=== PATIENT | female | born 1980 | race Two or more races ===

== ENCOUNTER 2024-02-07 13:17 | Inpatient (IN) | payer MEDICAID ==
[~2024-02-07] VITALS: Ht 162.6 cm; Wt 75.0 kg
[2024-02-07] VITALS (11 sets, daily range): BP systolic 117–170; BP diastolic 62–97; PULSE 70–84; RESP 13–20; TEMP 97.5–98.3; O2SAT 97–100
[2024-02-07] MEDS: ASPirin 325 MG TAB PO ONE (13:44)
[2024-02-07] MEDS: SODIUM CHLORIDE 0.9% 1,000 ML IV ONE (13:44)
[2024-02-07] MEDS: NITROGLYCERIN 0.4 MG SL TAB SL ONE (13:45)
[2024-02-07 13:57] LABS: Basophils # (auto) 0 10 ^3/uL (0-0.2); Basophils % (auto) 0.1 % (0.0-2.0); Eosinophils # (auto) 0 10 ^3/uL (0-0.8); Eosinophils % (auto) 0.2 % (0.0-7.0); Hematocrit 31.7 % (36.0-46.0); Hemoglobin 9.4 g/dL (12.2-16.2); Lymphocytes # (auto) 1.6 10 ^3/uL (0.4-5.4); Lymphocytes % (auto) 9.9 % (10.0-50.0); Mean Corpuscular Hgb Conc. 29.6 g/dL (32.0-36.0); Mean Corpuscular Volume 67.4 fL (80.0-100.0); Monocytes # (auto) 1.1 10 ^3/uL (0-1.3); Monocytes % (auto) 7.1 % (0.0-12.0); Neutrophils % (auto) 82.7 % (37.0-80.0); Red Blood Cells 4.71 10^6/uL (4.0-5.20); Red Cell Distribution Width 18.6 % (11.8-14.3); White Blood Cell 15.7 10^3/uL (4.4-10.8)
[2024-02-07 14:17] LABS: Hypochromia Marked; Platelet Estimate Increased
[2024-02-07 14:20] LABS: Blood Alcohol < 3.0 mg/dL (<10); Magnesium 1.7 mg/dL (1.6-2.6)
[2024-02-07 14:22] LABS: Alanine Aminotransferase 21 U/L (7-40); Albumin 4.7 g/dL (3.2-4.8); Alkaline Phosphatase 106 U/L (46-116); Anion Gap 8 (5-15); Aspartate Aminotransferase 35 U/L (13-40); BUN/Creatinine Ratio 18.2 (10.0-20.0); Bilirubin, Total 0.5 mg/dL (0.2-1.0); Blood Urea Nitrogen 10 mg/dL (9-23); Calcium 9.6 mg/dL (8.5-10.1); Carbon Dioxide 25 mmol/L (20-30); Chloride 105 mmol/L (98-107); Glucose 89 mg/dL (74-106); Magnesium 1.7 mg/dL (1.6-2.6); Potassium 3.7 mmol/L (3.5-5.1); Sodium 138 mmol/L (136-145); Total Protein 7.8 g/dL (5.7-8.2)
[2024-02-07] MEDS ORDERED: HEPARIN DRIP/D5W 100UNITS/ML 250 ML IV SCH (14:30)
[2024-02-07] MEDS ORDERED: HEPARIN SODIUM (PORCINE) 5000 UNITS/ML 1ML VIAL IV ONE (14:30)
[2024-02-07] MEDS ORDERED: NITROGLYCERIN 0.4 MG SL TAB SL PRN (14:45)
[2024-02-07] MEDS ORDERED: DOCUSATE SOD 100 MG CAP PO PRN (14:45)
[2024-02-07] MEDS ORDERED: MORPHINE SULFATE INJ 2 MG/ml SYRG IV PRN (14:45)
[2024-02-07] MEDS ORDERED: ALBUTEROL SULF 2.5 MG/0.5ML(0.5%) NEB SOLN NEB PRN (15:15)
[2024-02-07] MEDS ORDERED: IPRATROPIUM BROM 0.5 MG/2.5ML INH SOL NEB PRN (15:15)
[2024-02-07 15:29] LABS: Amphetamine Screen, Urine Neg (NEGATIVE)
[2024-02-07 15:30] LABS: Barbiturate Scree,Urine Neg (NEGATIVE); Benzodiazephine Screen, Urine Neg (NEGATIVE); Cannabinoid Screen, Urine Pos (NEGATIVE); Cocaine Screen, Urine Pos (NEGATIVE); Opiate Scree,Urine Neg (NEGATIVE); Phencyclidine Screen, Urine Neg (NEGATIVE); Urine Bacteria FEW /hpf (None Seen); Urine Blood Negative /uL (Negative); Urine Clarity Turbid (Clear); Urine Color Light-Yellow (Yellow); Urine Mucus FEW (None Seen); Urine Protein, UAD TRACE (Negative); Urine Specific Gravity 1.022 (1.001-1.035); Urine Urobilinogen Normal (Negative); Urine WBC 5 /hpf (0 - 5)
[2024-02-07] MEDS: IODIXANOL 320MG/ML 100ML BTL IV ONE (15:43)
[2024-02-07] MEDS: LIDOCAINE 2%HCL (LOCAL ANESTH.) INJ 20ML MDV ONE (15:58)
[2024-02-07 16:02] LABS: INR 1.04 (0.9-1.15); Partial Thromboplastin Time 25.6 SEC (24.5-34.5)
[2024-02-07] MEDS: cefTRIAXone 1GM/50ML D5W 50 ML IV ONE (16:04)
[2024-02-07] MEDS: PANTOPRAZOLE 40 MG/10 ML VIAL INJ IV ONE (16:04)
[2024-02-07 16:06] LABS: Triglycerides 130 mg/dL (< 150)
[2024-02-07 16:07] LABS: % Iron Saturation 4.2 % (15-50); LDL Cholesterol 114 mg/dL (< 100)
[2024-02-07 16:08] LABS: Cholesterol 169 mg/dL (< 200); HDL Cholesterol 44 mg/dL (40-59)
[2024-02-07] MEDS: ANGIOMAX 250 MG VIAL IV ONE (16:56)
[2024-02-07] MEDS: VERAPAMIL 2.5MG/ML INJ 2ML VIAL IV ONE (16:56)
[2024-02-07] MEDS: fentaNYL CITRATE 100 MCG/2 ML VL ONE (16:56)
[2024-02-07] MEDS: MIDAZOLAM HCL 2MG/2ML 2ml VIAL (1mg/ml) ONE (16:56)
[2024-02-07] MEDS: HEPARIN SODIUM (PORCINE) 5000 UNITS/ML 1ML VIAL ONE (16:56)
[2024-02-07] MEDS: SODIUM CHL 0.9% 0 ML ONE (16:57)
[2024-02-07] MEDS: HEPARIN SODIUM (PORCINE) 5000 UNITS/ML 1ML VIAL IV ONE (18:12)
[2024-02-07] MEDS: hydrALAZINE HCL 20 MG/ML VL IV PRN (18:12)
[2024-02-07] MEDS: SODIUM CHLORIDE 0.9% 1,000 ML IV SCH (18:13)
[2024-02-07] MEDS: MORPHINE SULFATE INJ 2 MG/ml SYRG IV PRN (20:05)
[2024-02-07] MEDS: ONDANSETRON HCL 4 MG/2 ML VIAL IV PRN (20:08)
[2024-02-07] MEDS: ATORVASTATIN 20 MG TAB PO SCH (21:24)
[2024-02-07] MEDS: SODIUM CHLOR 0.9% PF (SALINE LOCK) 10ML VIAL/SYR IV SCH (21:25)
[2024-02-07] MEDS: HYDROcodone-ACET 5/325MG TAB PO PRN (22:43)
[2024-02-08] VITALS (11 sets, daily range): BP systolic 118–133; BP diastolic 55–70; PULSE 59–75; RESP 17–20; TEMP 97.6–98.5; O2SAT 96–99
[2024-02-08 07:07] LABS: Alanine Aminotransferase 17 U/L (7-40); Albumin 3.9 g/dL (3.2-4.8); Alkaline Phosphatase 84 U/L (46-116); Anion Gap 4 (5-15); Aspartate Aminotransferase 60 U/L (13-40); BUN/Creatinine Ratio 11.7 (10.0-20.0); Basophils # (auto) 0 10 ^3/uL (0-0.2); Blood Urea Nitrogen 7 mg/dL (9-23); Calcium 8.7 mg/dL (8.5-10.1); Carbon Dioxide 27 mmol/L (20-30); Chloride 109 mmol/L (98-107); Cholesterol 126 mg/dL (< 200); Eosinophils # (auto) 0.3 10 ^3/uL (0-0.8); Glucose 91 mg/dL (74-106); HDL Cholesterol 32 mg/dL (40-59); Hemoglobin 8.3 g/dL (12.2-16.2); LDL Cholesterol 80 mg/dL (< 100); Mean Corpuscular Hemoglobin 20.5 pg (28.0-32.0); Mean Corpuscular Hgb Conc. 30.1 g/dL (32.0-36.0); Mean Corpuscular Volume 68.1 fL (80.0-100.0); Monocytes # (auto) 0.7 10 ^3/uL (0-1.3); Nucleated Red Blood Cells % 0.3 %; Potassium 3.4 mmol/L (3.5-5.1); Sodium 140 mmol/L (136-145); Triglycerides 137 mg/dL (< 150)
[2024-02-08 07:08] LABS: Bilirubin, Total 0.5 mg/dL (0.2-1.0); Total Protein 6.6 g/dL (5.7-8.2)
[2024-02-08 07:10] LABS: Basophils % (auto) 0.4 % (0.0-2.0); Eosinophils % (auto) 4.4 % (0.0-7.0); Hematocrit 27.6 % (36.0-46.0); Lymphocytes # (auto) 1.9 10 ^3/uL (0.4-5.4); Monocytes % (auto) 8.7 % (0.0-12.0); Neutrophils # (auto) 4.8 10 ^3/uL (1.6-8.6); Neutrophils % (auto) 61.5 % (37.0-80.0); Red Blood Cells 4.05 10^6/uL (4.0-5.20); Red Cell Distribution Width 18.1 % (11.8-14.3); White Blood Cell 7.7 10^3/uL (4.4-10.8)
[2024-02-08 07:20] LABS: INR 1.06 (0.9-1.15); Partial Thromboplastin Time 24.5 SEC (24.5-34.5); Prothrombin Time 11.2 sec (9.3-11.8)
[2024-02-08] MEDS: PANTOPRAZOLE 40 MG/10 ML VIAL INJ IV SCH (08:53)
[2024-02-08] MEDS: ASPirin-EC 81 mg tab PO SCH (08:53)
[2024-02-08] MEDS: cefTRIAXone 1GM/50ML D5W 50 ML IV SCH (08:53)
[2024-02-08] MEDS: LISINOPRIL 5 MG TAB PO SCH (10:00)
[2024-02-08] MEDS: ACETAMINOPHEN 325 MG TAB PO PRN (22:38)
[2024-02-09] VITALS (7 sets, daily range): BP systolic 118–150; BP diastolic 50–86; PULSE 61–64; RESP 17–20; TEMP 36.7; O2SAT 97–98
[2024-02-09] MEDS ORDERED: LISI20TA56 PO (10:08)
[2024-02-09] MEDS ORDERED: ASPI1TAB20 PO (10:08)
== END 2024-02-09 13:20 | disposition home or self-care (01) | DRG 190 ==
LOC: ER 13:17 → OVERFLOW 15:03 → TELE-WESTW 18:44
PROVIDERS: ADMIT Nurse Practitioner Family; ATTEND Family Medicine
PROC: B211YZZ Fluoroscopy of Multiple Coronary Arteries using Other Contrast (ICD-10-PCS; principal; 2024-02-07)
PROC: B215YZZ Fluoroscopy of Left Heart using Other Contrast (ICD-10-PCS; 2024-02-07)
PROC: 4A023N7 Measurement of Cardiac Sampling and Pressure, Left Heart, Percutaneous Approach (ICD-10-PCS; 2024-02-07)
DX: I21.4 Non-ST elevation (NSTEMI) myocardial infarction (principal); I50.23 Acute on chronic systolic (congestive) heart failure; D50.9 Iron deficiency anemia, unspecified; D72.829 Elevated white blood cell count, unspecified; F12.10 Cannabis abuse, uncomplicated; E78.5 Hyperlipidemia, unspecified; I11.0 Hypertensive heart disease with heart failure; F14.10 Cocaine abuse, uncomplicated; F17.210 Nicotine dependence, cigarettes, uncomplicated; Z79.82 Long term (current) use of aspirin; Z79.899 Other long term (current) drug therapy; Z82.49 Family history of ischemic heart disease and other diseases of the circulatory system; Z98.82 Breast implant status; Z71.51 Drug abuse counseling and surveillance of drug abuser; Z86.32 Personal history of gestational diabetes; I25.10 Atherosclerotic heart disease of native coronary artery without angina pectoris
CPT/HCPCS: 36415; 71045; 80053; 80061; 80307; 80320; 81001; 83036; 83540; 83550; 83735; 83880; 84443; 84484; 84702; 85025; 85610; 85730; 87040; 93005; 93306; 96361; 96365; 96375; 99152; C9113; G0378; J2250; J2405; Q9967